=== PATIENT | male | born 1935 | race Hispanic/Latino ===

== ENCOUNTER 2017-12-23 09:41 | Emergency (ER) | payer MEDICARE ==
[2017-12-23 09:42] VITALS: BMI 27.6
[2017-12-23 10:11] VITALS: BP 127/78; PULSE 60; RESP 20; TEMP 97; O2SAT 98
--- NOTE | 2017-12-23 10:16 | ED PDOC ---
HPI: Trauma/Fall - HPI Time Seen by Provider: 12/23/17 10:11 Chief Complaint (Nursing): Upper Extremity Problem/Injury Chief Complaint (Provider): Injury to Left Shoulder and Left side of Face History Per: Patient History/Exam Limitations: no limitations Location Of Injury: Left: Face, Shoulder Associated Symptoms: denies: Dizziness, LOC, Seizure Additional Complaint(s): 82 year old male with a past medical history of hypertension and dementia presents to the emergency department post fall with injury to left shoulder and to the left side of his face. The patient reports that he slipped and fell causing injury. denies loss of consciousness, hips pain, back pain, rib pain. PMD: Reg [facility] Past Medical History Reviewed: Historical Data, Nursing Documentation, Vital Signs Vital Signs: Last Vital Signs Temp 97.0 F L 12/23/17 10:05 Pulse 60 12/23/17 10:05 Resp 20 12/23/17 10:05 BP 127/78 12/23/17 10:05 Pulse Ox 98 12/23/17 10:22 - Medical History PMH: Atrial Fibrillation, Cardia Arrhythmia, HTN, Hypercholesterolemia Denies: HIV, Chronic Kidney Disease - Surgical History Surgical History: Cholecystectomy, Pacemaker - Family History Family History: States: Unknown Family Hx - Social History Current smoker - smoking cessation education provided: No Ex-Smoker (has not smoked in the last 12 months): No Alcohol: None Drugs: Denies - Home Medications Home Medications: Ambulatory Orders Medication Instructions Recorded Calcium/Cholecalciferol [[place] 1 tab PO DAILY 03/30/15 500+D 500 mg-200 Iu] Dutasteride [Avodart] 1 cap PO DAILY 03/30/15 Losartan/Hydrochlorothiazide 1 tab PO DAILY 03/30/15 [Hyzaar 100-25 Tablet] Tamsulosin HCl 2 cap PO DAILY 03/30/15 Apixaban [Eliquis] 2.5 mg PO DAILY 07/23/15 Ibuprofen [Motrin] 600 mg PO Q8 #20 tab 12/23/17 - Allergies Allergies/Adverse Reactions: Allergies Allergy/AdvReac Type Severity Reaction Status Date / Time No Known Allergies Allergy Verified 12/23/17 09:59 Review of Systems ROS Statement: Except As Marked, All Systems Reviewed And Found Negative Constitutional: Positive for: Other (Injury to the left side of face) Musculoskeletal: Positive for: Shoulder Pain (left shoulder injury), Other ( Denies rib pain and hip pain). Negative for: Back Pain Physical Exam - Physical Exam Appears: Positive for: Non-toxic, No Acute Distress Head Exam: Positive for: NORMAL INSPECTION, NORMOCEPHALIC. Negative for: ATRAUMATIC (Abrasion to left infraorbital area, no palpable fracture. ) Skin: Positive for: Normal Color, Warm, Dry. Negative for: Rash Eye Exam: Positive for: Normal appearance, EOMI, PERRL. Negative for: Nystagmus ENT: Positive for: Normal ENT Inspection. Negative for: Nasal Congestion, Tonsillar Exudate, Tonsillar Swelling Neck: Positive for: Normal, Painless ROM, Supple Cardiovascular/Chest: Positive for: Regular Rate, Rhythm, Chest Non Tender. Negative for: Tachycardia Respiratory: Positive for: Normal Breath Sounds. Negative for: Rales, Rhonchi, Wheezing, Respiratory Distress Gastrointestinal/Abdominal: Positive for: Normal Exam, Bowel Sounds, Soft. Negative for: Tenderness, Mass, Guarding, Rebound Back: Positive for: Normal Inspection. Negative for: L CVA Tenderness, R CVA Tenderness, Vertebral Tenderness, Other (No spinal tenderness) Extremity: Positive for: Normal ROM (Full ROM of shoulder and hip), Other (mild abrasion to ledt shoulder). Negative for: Tenderness (no tenderness to hips), Deformity (No deformity to hips) Neurologic/Psych: Positive for: Alert, Oriented, Gait - ECG O2 Sat by Pulse Oximetry: 98 (RA) Pulse Ox Interpretation: Normal Medical Decision Making Medical Decision Makin Initial Impression 82 year old male presenting with fall type injuries Initial Plan: * CT Head w/o Contrast * Motrin Tab 600mg PO * RAD Left Shoulder * Reevaluation Documented by Esperanza Newsome acting as a scribe for Ahsan Hook MD. All medical record entries made by the Scribe were at my direction and personally dictated by me. I have reviewed the chart and agree that the record accurately reflects my personal performance of the history, physical exam, medical decision making, and the department course for this patient. I have also personally directed, reviewed, and agree with the discharge instructions and disposition. Disposition - Clinical Impression Clinical Impression: Elbow fracture - Patient ED Disposition Is Patient to be Admitted: No Counseled Patient/Family Regarding: Studies Performed, Diagnosis, Need For Followup, Rx Given - Disposition Referrals: Shay Mack MD [Medical Doctor] - Disposition: Routine/Home Disposition Time: 11:47 Condition: FAIR Prescriptions: Ibuprofen [Motrin] 600 mg PO Q8 #20 tab Instructions: Elbow Fracture (DC) Forms: [employer] (I[place]ic)
--- NOTE | 2017-12-23 11:43 | CT ---
PROCEDURE: CT HEAD WITHOUT CONTRAST. HISTORY: r/o bleed COMPARISON: 04/07/2017. TECHNIQUE: Axial computed tomography images were obtained through the head/brain without intravenous contrast. Coronal and sagittal reconstructed images. Radiation dose: Total exam DLP = 1306.80 mGy-cm. This CT exam was performed using one or more of the following dose reduction techniques: Automated exposure control, adjustment of the mA and/or kV according to patient size, and/or use of iterative reconstruction technique. FINDINGS: HEMORRHAGE: No intracranial hemorrhage. BRAIN: No mass effect or edema. Cortical and cerebellar atrophy, periventricular small vessel disease. VENTRICLES: Unremarkable. No hydrocephalus. CALVARIUM: Unremarkable. PARANASAL SINUSES: Unremarkable as visualized. No significant inflammatory changes. MASTOID AIR CELLS: Unremarkable as visualized. No inflammatory changes. OTHER FINDINGS: None. IMPRESSION: No acute intracranial abnormalities. No significant findings to account for the clinical presentation. No significant interval change compared to the prior examination(s).
--- NOTE | 2017-12-23 11:46 | RAD ---
PROCEDURE: Radiographs of the Left Shoulder HISTORY: trauma COMPARISON: No prior. FINDINGS: BONES: Normal. No fracture. JOINTS: Preserved glenohumeral relationship, acromioclavicular degenerative change: SOFT TISSUES: Normal. OTHER FINDINGS: None. IMPRESSION: No acute findings related to/accounting for the clinical presentation.
--- NOTE | 2017-12-23 11:47 | RAD ---
PROCEDURE: Radiographs of the left elbow. HISTORY: trauma COMPARISON: No prior. FINDINGS: BONES: Disruption of the cortex left radial head likely nondisplaced radial head fracture. The finding is marked on the study for review. Moderate olecranon spur are likely the sequela of prior trauma. JOINTS: Normal. No osteoarthritis. SOFT TISSUES: Soft tissue swelling attests to the acuity of the fracture. JOINT EFFUSION: None. OTHER FINDINGS: None IMPRESSION: Nondisplaced left radial head fracture.
== END 2017-12-23 11:54 | disposition home or self-care (01) ==
LOC: H.ER 09:41
DX: S42.402A Unspecified fracture of lower end of left humerus, initial encounter for closed fracture (principal); I10 Essential (primary) hypertension; Z87.891 Personal history of nicotine dependence; Z95.0 Presence of cardiac pacemaker; Z79.01 Long term (current) use of anticoagulants; E78.00 Pure hypercholesterolemia, unspecified; W19.XXXA Unspecified fall, initial encounter